=== PATIENT | male | born 1965 | race Caucasian/White ===

== ENCOUNTER 2016-09-27 10:37 | Outpatient (CLI) ==
[2016-09-27 10:56] LABS: HEMATOCRIT 36.8 % (42.0-52.0); HEMOGLOBIN 12.4 g/dl (14.0-18.0); MEAN CORPUSCULAR HGB CONC 33.7 (31.8-35.4); MEAN CORPUSCULAR VOLUME 89.1 fl (80.0-94.0); PLATELET COUNT 149 10^3/uL (140-440); RED BLOOD COUNT 4.13 10^6/ul (4.70-6.10); WHITE BLOOD COUNT 8.53 K/ul (4.2-10.2)
[2016-09-27 11:19] LABS: ALBUMIN 3.1 g/dL (3.4-5.0); ALBUMIN/GLOBULIN RATIO 0.78; BILIRUBIN,TOTAL 0.59 mg/dL (0.00-1.20); BUN/CREATININE RATIO 18.75; CALCIUM 8.8 mg/dL (8.2-10.2); CREATININE 0.8 mg/dL (0.60-1.10); TOTAL PROTEIN 7.1 g/dL (6.4-8.2)
[2016-09-27 11:26] LABS: ERYTHROCYTE SEDIMENTATION RATE 60 mm/hr (0-15); ESR INTERNAL QC INTERNAL QC VALID
== END 2016-09-27 10:38 | disposition home or self-care (01) ==
LOC: LAB 10:37
PROVIDERS: ATTEND Internal Medicine Rheumatology
DX: M05.79 Rheumatoid arthritis with rheumatoid factor of multiple sites without organ or systems involvement (principal); R79.9 Abnormal finding of blood chemistry, unspecified; E11.610 Type 2 diabetes mellitus with diabetic neuropathic arthropathy
CPT/HCPCS: 36415; 80053; 80061; 83036; 85027; 85651

== ENCOUNTER 2017-02-14 09:02 | Outpatient (CLI) ==
[2017-02-14 09:17] LABS: HEMOGLOBIN 13.4 g/dl (14.0-18.0); MEAN CORPUSCULAR HEMOGLOBIN 29.6 pg (27.0-31.0); MEAN CORPUSCULAR HGB CONC 34.4 (31.8-35.4); MEAN CORPUSCULAR VOLUME 86.3 fl (80.0-94.0); PLATELET COUNT 144 10^3/uL (140-440); RED BLOOD COUNT 4.52 10^6/ul (4.70-6.10); WHITE BLOOD COUNT 4.41 K/ul (4.2-10.2)
[2017-02-14 09:34] LABS: ALBUMIN 3.4 g/dL (3.4-5.0); ANION GAP 12.1; BILIRUBIN,TOTAL 0.75 mg/dL (0.00-1.20); BUN/CREATININE RATIO 17.33; CALCIUM 8.9 mg/dL (8.2-10.2); CREATININE 0.75 mg/dL (0.60-1.10); POTASSIUM 4.1 mmol/L (3.5-5.1); TOTAL PROTEIN 6.8 g/dL (6.4-8.2)
[2017-02-14 09:48] LABS: ERYTHROCYTE SEDIMENTATION RATE 33 mm/hr (0-15); ESR INTERNAL QC INTERNAL QC VALID
== END 2017-02-14 09:03 | disposition home or self-care (01) ==
LOC: LAB 09:02
PROVIDERS: ATTEND Internal Medicine Rheumatology
DX: M05.79 Rheumatoid arthritis with rheumatoid factor of multiple sites without organ or systems involvement (principal)
CPT/HCPCS: 36415; 80053; 85027; 85651

== ENCOUNTER 2017-10-07 09:51 | Outpatient (CLI) | END 2017-10-07 09:52 | disposition home or self-care (01) | LOC: LAB 09:51 | PROVIDERS: ATTEND Internal Medicine Infectious Disease | DX: E11.9 Type 2 diabetes mellitus without complications (principal); M06.9 Rheumatoid arthritis, unspecified; M86.172 Other acute osteomyelitis, left ankle and foot; Z86.14 Personal history of Methicillin resistant Staphylococcus aureus infection; Z68.22 Body mass index [BMI] 22.0-22.9, adult | CPT/HCPCS: 36415; 85651; 86140 ==